=== PATIENT | male | born 1945 | race Caucasian/White ===

== ENCOUNTER 2017-04-14 08:25 | Emergency (ER) | payer OTHER ==
[~2017-04-14] VITALS: Ht 172.7 cm; Wt 88.1 kg
[~2017-04-14 08:25] MED LIST: CEFTIN500 MG PO; DELTASONE20 MG PO; DUONEB3 ML IH; NOHOMEMEDS; ZITHROMAX500 MG PO
[2017-04-14] MEDS ORDERED: PRILOSEC OTC20 MG PO (08:54)
[2017-04-14] MEDS ORDERED: FLUAD 201745 MCG/0.5 IM (08:54)
[2017-04-14] MEDS ORDERED: FLOMAX0.4 MG PO (08:54)
[2017-04-14] MEDS ORDERED: AMBIEN10 MG PO (08:55)
[2017-04-14] MEDS ORDERED: DAILY VALUE1 EACH PO (08:55)
[2017-04-14 08:59] LABS: HEMATOCRIT 46.7 % (38.0-50.0); MCHC 34.7 G/DL (30.0-36.0); MCV 92.1 FL (86-99); MEAN PLAT.VOLUME 10.7 uM^3 (9.0-12.4); PLATELET COUNT 206 K/uL (156-360); RBC DIS.WIDTH-CV 12.4 % (11.8-14.6); RBC DIS.WIDTH-SD 42.1 % (39-53); RED BLOOD COUNT 5.07 M/uL (4.00-5.50); WHITE BLOOD COUNT 7.2 K/uL (4.1-10.2)
[2017-04-14 09:17] LABS: CHLORIDE 108 mEq/L (99-109); POTASSIUM 4.1 mEq/L (3.7-5.4); SODIUM 142 mEq/L (136-147)
[2017-04-14 09:19] LABS: GLUCOSE 64 mg/dL (70-99)
[2017-04-14 09:20] LABS: ANION GAP 9 MEQ/L (2-14)
[2017-04-14 09:21] LABS: TOTAL BILIRUBIN 0.6 mg/dL (0.0-1.0); TROP-I INTERPRETATION NEGATIVE; TROPONIN-I < 0.01 ng/mL (0.0-0.30)
[2017-04-14 09:22] LABS: ALKALINE PHOSPHATASE 80 IU/L (3-129)
[2017-04-14 09:23] LABS: GFR ESTIMATE (CALCULATED) > 59 mL/min/ (58.99-99999)
[2017-04-14 09:24] LABS: DIRECT BILIRUBIN 0.2 mg/dL (0.0-0.3); UREA NITROGEN (BUN) 19 mg/dL (9-23)
[2017-04-14 09:26] LABS: LIPASE 47 U/L (1.0-51.0)
[2017-04-14 11:11] LABS: ADD MIUA? YES; BILIRUBIN NEGATIVE; BLOOD NEGATIVE; COLOR YELLOW ((YELLOW)); GLUCOSE (STRIP) NEGATIVE; KETONES NEGATIVE; LEUKOCYTES TRACE; NITRITE NEGATIVE; PROTEIN (STRIP) NEGATIVE; SPECIFIC GRAVITY 1.014 (1.000-1.030); UROBILINOGEN 0.2 MG/DL (0.2-1.0)
[2017-04-14 11:16] LABS: BACTERIA RARE /HPF; EPITHELIAL CELLS RARE /HPF; HYALINE CASTS 0-5 /LPF; MUCUS TRACE /LPF; RED BLOOD CELLS 0-5 /HPF (0-5); UCUL ADDED? NO; WHITE BLOOD CELLS 0-5 /HPF (0-5)
[2017-04-14 11:39] LABS: TROP-I INTERPRETATION NEGATIVE; TROPONIN-I < 0.01 ng/mL (0.0-0.30)
[2017-04-14] MEDS ORDERED: PROTONIX40 MG PO (12:48)
[2017-04-14 12:59] VITALS: BP 138/83
== END 2017-04-14 12:59 | disposition home or self-care (01) ==
LOC: EME 08:25
PROVIDERS: Emergency Medicine
DX: R10.13 Epigastric pain (principal); R42 Dizziness and giddiness; K76.89 Other specified diseases of liver; Z87.891 Personal history of nicotine dependence
CPT/HCPCS: 71010; 76705; 80053; 81003; 82248; 83690; 84484; 85027; 93005; 99281; 99285

== ENCOUNTER → 2017-05-07 | Outpatient (CLI) | payer OTHER ==
[~2017-05-07] MED LIST changes: +AMBIEN10 MG PO; +DAILY VALUE1 EACH PO; +FLOMAX0.4 MG PO; +FLUAD 201745 MCG/0.5 IM; +PRILOSEC OTC20 MG PO; +PROTONIX40 MG PO
== END | disposition home or self-care (01) ==
LOC: NUC 10:30
DX: R10.13 Epigastric pain (principal)
CPT/HCPCS: 78227; A9537; J2805